=== PATIENT | male | born 1995 | race Caucasian/White ===

== ENCOUNTER 2025-05-15 22:28 | Emergency (ER) | payer SELFPAY ==
[~2025-05-15] VITALS: Ht 170.2 cm; Wt 104.5 kg
[2025-05-15 22:35] VITALS: BP 146/97; PULSE 75; RESP 14; TEMP 98.1; O2SAT 98
[2025-05-15 22:48] LABS: COVID AG,FIA SOURCE NASAL SWAB
[2025-05-15 23:09] LABS: RAPID GROUP A STREP NEGATIVE (NEGATIVE)
[2025-05-15 23:11] LABS: SARS-COV2 (COVID) ANTIGEN,FIA Negative (Negative)
[2025-05-15 23:12] LABS: INFLUENZA TYPE A NEGATIVE FOR TYPE A (NEGATIVE); INFLUENZA TYPE B NEGATIVE FOR TYPE B (NEGATIVE)
[2025-05-16] MEDS: IBUPROFEN 800 MG TABLET PO ONE (00:36)
[2025-05-16 01:01] LABS: APPEARANCE,URINE CLEAR (CLEAR); GLUCOSE, URINE (UA) NEGATIVE (NEGATIVE); LEUKOCYTE ESTERASE ,URINE NEGATIVE (NEGATIVE); NITRATE,URINE NEGATIVE (NEGATIVE); OCCULT BLOOD,URINE NEGATIVE (NEGATIVE); SPECIFIC GRAVITIY, URINE 1.023 (1.003-1.030)
[2025-05-16] MEDS ORDERED: IBUP-1492 PO (01:10)
[2025-05-16] MEDS ORDERED: AZIT250T9 PO (01:10)
== END 2025-05-16 01:27 | disposition home or self-care (01) ==
LOC: EMS 23:12
DX: J03.90 Acute tonsillitis, unspecified (principal); F17.210 Nicotine dependence, cigarettes, uncomplicated; Z20.822 Contact with and (suspected) exposure to COVID-19
CPT/HCPCS: 81003; 87430; 87804; 99283